=== PATIENT | male | born 1955 ===

== ENCOUNTER 2018-06-30 18:03 | Emergency (ER) | payer OTHER, MEDICARE ==
[2018-06-30 18:21] VITALS: RESP 16; TEMP 97.8; O2SAT 98
[2018-06-30] MEDS ORDERED: Tdap Vaccine 0.5 ml Vial (10-64 yrs) IM ONE ×2 (19:12→19:20)
--- NOTE | 2018-06-30 19:51 | C.PDOC ---
History Of Present Illness 63 y/o male comes in complaining of an injury to his left hand after a box machine fell on his left hand at work earlier today. Patient is right hand dominant. Patient has sustained an abrasion on top of the left hand but no wrist injury. Tetanus is not up to date. Time Seen by Provider: 06/30/18 19:03 Chief Complaint (Nursing): Upper Extremity Problem/Injury History Per: Patient History/Exam Limitations: no limitations Onset/Duration Of Symptoms: Hrs Current Symptoms Are (Timing): Still Present Past Medical History Reviewed: Historical Data, Nursing Documentation, Vital Signs Vital Signs: Last Vital Signs Temp 97.8 F 06/30/18 18:18 Pulse 70 06/30/18 18:18 Resp 16 06/30/18 18:18 BP 145/93 H 06/30/18 18:18 Pulse Ox 98 06/30/18 18:18 - Medical History PMH: HTN, Hyperlipidemia Family History: States: No Known Family Hx - Social History Hx Alcohol Use: Yes Hx Substance Use: No - Immunization History Hx Tetanus Toxoid Vaccination: No Hx Influenza Vaccination: No Hx Pneumococcal Vaccination: No Review Of Systems Except As Marked, All Systems Reviewed And Found Negative. Musculoskeletal: Positive for: Other (Hand injury) Physical Exam - Physical Exam Appears: Non-toxic, No Acute Distress Skin: Warm, Dry Head: Atraumatic, Normacephalic Eye(s): bilateral: Normal Inspection Oral Mucosa: Moist Neck: Supple Chest: Symmetrical Cardiovascular: Rhythm Regular, No Murmur Respiratory: Normal Breath Sounds, No Rales, No Rhonchi, No Wheezing Extremity: Tenderness (and swelling with abrasion to dorsal hand), Capillary Refill (less than 2 seconds) Pulses: Left Radial: Normal Neurological/Psych: Oriented x3, Normal Speech, Normal Motor, Normal Sensation, Normal Reflexes ED Course And Treatment O2 Sat by Pulse Oximetry: 98 (RA) Pulse Ox Interpretation: Normal Medical Decision Making Medical Decision Making: Impression: Hand contusion Plan: --Adacel --Motrin PO --Left hand XR XR preliminary read, no fractures. Used dermabond to seal abrasion from bleeding. Benja wrap applied. Disposition Counseled Patient/Family Regarding: Studies Performed, Diagnosis, Need For Followup, Rx Given - Disposition Referrals: Matteo Kennedy MD [Staff Provider] - Disposition: HOME/ ROUTINE Disposition Time: 19:49 Condition: STABLE Additional Instructions: follow up with your doctor within 2 days call to make an appointment ice to injured area take pain medications as needed return to ER if symptoms worsens or progress Prescriptions: Acetaminophen/Codeine [Tylenol/Codeine 300 MG/30 MG] 1 tab PO Q6H PRN #12 tab PRN Reason: Pain, Severe (8-10) Naproxen [Naprosyn] 500 mg PO BID PRN #16 tab PRN Reason: Pain, Moderate (4-7) Instructions: Contusion (DC) Forms: General Discharge Instructions, [facility] (Yoruba), Work Excuse - Clinical Impression Clinical Impression: Contusion - Scribe Statement The provider has reviewed the documentation as recorded by the Ti Schaefer Provider Attestation: All medical record entries made by the Madiibnicole were at my direction and personally dictated by me. I have reviewed the chart and agree that the record accurately reflects my personal performance of the history, physical exam, medical decision making, and the department course for this patient. I have also personally directed, reviewed, and agree with the discharge instructions and disposition.
[2018-06-30 20:05] VITALS: BP 132/85; PULSE 88
--- NOTE | 2018-07-01 08:07 | RAD ---
PROCEDURE: Left Hand Radiographs. HISTORY: injury COMPARISON: None. FINDINGS: BONES: No fracture seen JOINTS: No significant appearing arthrosis noted. SOFT TISSUES: Prominent soft tissue swelling: Dorsal and ulnar side--5th metacarpal level. OTHER FINDINGS: None. IMPRESSION: No fracture or dislocation is suggested. Moderate soft tissue swelling in the area of interest
== END 2018-06-30 20:04 | disposition home or self-care (01) ==
LOC: C.ER 18:03
DX: S60.222A Contusion of left hand, initial encounter (principal); W31.89XA Contact with other specified machinery, initial encounter; Y92.89 Other specified places as the place of occurrence of the external cause; Y99.0 Civilian activity done for income or pay